=== PATIENT | female | born 1960 ===

== ENCOUNTER 2021-11-10 08:50 | Inpatient (IN) ==
[~2021-11-10 08:50] MED LIST: Buffered Lidocaine 1% SYRIN 1 ml INTRADERM ONE; DiMENhydriNATE IV 50 mg/ml 1 ml VIAL IV PUSH ONE; Famotidine IV 10 MG/ML 2 ml VIAL (20 mg) IV ONE; Lactated Ringers 1000 ml BAG 1,000 ML IV SCH
[2021-11-10 09:52] LABS: Hematocrit 50 % (35-47); Hemoglobin 16.5 g/dL (12.0-16.0); Mean Corpuscular HGB Conc 33 g/dL (31-36); Mean Corpuscular Hemoglobin 32 pg (27-31); Mean Corpuscular Volume 96 fL (80-97); Mean Platelet Volume 8.3 fL (7.4-10.4); Platelet Count 219 10^3/uL (150-450); Red Cell Distribution Width 14 % (10-15); White Blood Count 12.7 10^3/uL (3.5-10.8)
[2021-11-10 09:59] LABS: INR 1.04 (0.86-1.15)
[2021-11-10 10:29] LABS: Calcium 9.4 mg/dL (8.6-10.3); Potassium 4.1 mmol/L (3.5-5.0); eGFR CKD-EPI 46.2 (>60)
[2021-11-10] MEDS ORDERED: Propofol 10 MG/ML 20 ML BTL ONE (10:29)
[2021-11-10] MEDS ORDERED: Lidocaine 2% PF 5 ML VIAL ONE (10:29)
[2021-11-10] MEDS ORDERED: fentaNYL 100 mcg/2 ml 50 MCG/ML VIAL ONE ×2 (10:30→17:04)
[2021-11-10] MEDS ORDERED: Rocuronium 50 mg VIAL 10 mg/ml 5 ml VIAL (50 mg) ONE ×2 (10:30→14:24)
[2021-11-10] MEDS ORDERED: Midazolam 2 mg/2 ml VIAL 1 mg/ml 2 ml VIAL (2 mg) ONE (10:30)
[2021-11-10] MEDS ORDERED: Buffered Lidocaine 1% SYRIN 1 ml INTRADERM ONE (11:41)
[2021-11-10] MEDS ORDERED: Perflutren Lipid Microsphere 3 ML VIAL ONE (11:50)
[2021-11-10 12:40] LABS: ABS Basophils 0.1 10^3/ul (0-0.2); ABS Eosinophils 0.1 10^3/ul (0-0.6); ABS Monocytes 1.3 10^3/ul (0-0.8); ABS Neutrophils 8.2 10^3/ul (1.5-7.7); Eosinophil % 1.1 %; Lymphocyte % 23.3 %; Nucleated Red Blood Cells % 0.2
[2021-11-10] MEDS ORDERED: ceFAZolin 2 GM in NS PREMIX 2 GM/100 ML BAG IVPB ONE (12:49)
[2021-11-10] MEDS ORDERED: Bupivacaine 0.25% EPI 200,000 30 ML SDV ONE (12:57)
[2021-11-10] MEDS ORDERED: ceFAZolin VIAL 1 GM in NS 0.9% 50 ML 50 ML IVPB ONE (13:00)
[2021-11-10] MEDS ORDERED: Albuterol/Ipratropium NEB.SOL (2.5/0.5 MG) 3 ML NEB.SOLN ONE (13:39)
[2021-11-10] MEDS ORDERED: Albuterol/Ipratropium NEB.SOL (2.5/0.5 MG) 3 ML NEB.SOLN INH ONE (13:41)
[2021-11-10] MEDS ORDERED: ROPIVACAINE 5 MG/ML 30 ML BTL (0.5%) ONE (13:50)
[2021-11-10] MEDS ORDERED: Lidocaine 1% MPF 5 ML VIAL ONE (13:50)
[2021-11-10] MEDS ORDERED: Dexamethasone IV 4 MG/ML VIAL 1 ml VIAL ONE (15:08)
[2021-11-10] MEDS ORDERED: Vancomycin 1,000 MG VIAL ONE (15:21)
[2021-11-10] MEDS ORDERED: Esmolol 10 MG/ML 10 ML (100 mg) ONE (15:52)
[2021-11-10] MEDS ORDERED: Labetalol IV 5 MG/ML 20 ml VIAL ONE (16:24)
[2021-11-10] MEDS ORDERED: Levalbuterol HFA INHALER MDI ONE (16:34)
[2021-11-10] MEDS ORDERED: Ondansetron 4 mg VIAL 2 MG/ML 2 ml VIAL ONE (16:45)
[2021-11-10] MEDS ORDERED: Sevoflurane BOTTLE ONE (16:49)
[2021-11-10] MEDS ORDERED: Desflurane 240 ML INH ONE (16:49)
[2021-11-10] MEDS ORDERED: Phenylephrine 40 mcg/mL 10mL (400mcg) SYRINGE ONE (17:15)
[2021-11-10] MEDS ORDERED: Morphine 2 MG/ML SYRINGE IV PRN (17:47)
[2021-11-10] MEDS ORDERED: Lactulose 30 ml UDC PO PRN (17:47)
[2021-11-10] MEDS ORDERED: Magnesium Hydroxide LIQ 30 ML UDC PO PRN (17:47)
[2021-11-10] MEDS ORDERED: diPHENhydraMINE IV 50 MG/ML 1 ml VIAL (BENADRYL) IV PRN (17:47)
[2021-11-10] MEDS ORDERED: Ondansetron 4 mg VIAL 2 MG/ML 2 ml VIAL IV PRN (17:47)
[2021-11-10] MEDS ORDERED: Ondansetron ODT 4 mg TAB 4 MG TAB PO PRN (17:47)
[2021-11-10] MEDS ORDERED: Albuterol HFA INHALER 8 gm MDI INH PRN (17:58)
[2021-11-10] MEDS ORDERED: EPINEPHRINE INH PRN (17:58)
[2021-11-10] MEDS ORDERED: Lactated Ringers 1000 ml BAG 1,000 ML IV SCH (18:00)
[2021-11-10] MEDS: Magnesium Hydroxide LIQ 30 ML UDC PO SCH (22:46)
[2021-11-11] MEDS: ceFAZolin VIAL 1 GM in NS 0.9% 50 ML 50 ML IVPB SCH ×3 (02:00→17:50)
[2021-11-11 06:04] LABS: Hematocrit 41 % (35-47); Hemoglobin 13.7 g/dL (12.0-16.0); Mean Platelet Volume 8.6 fL (7.4-10.4); Platelet Count 193 10^3/uL (150-450)
[2021-11-11 06:33] LABS: Calcium 8.6 mg/dL (8.6-10.3)
[2021-11-11 06:58] LABS: Potassium 5.1 mmol/L (3.5-5.0)
[2021-11-11] MEDS: SPIRIVA Respimat (tiotropium) 2.5 mcg/inh Inhaler INH SCH (08:35)
[2021-11-11] MEDS: Magnesium Hydroxide LIQ 30 ML UDC PO SCH ×2 (09:15→20:16)
[2021-11-11] MEDS: Vitamin THERAPEUTIC TAB PO SCH (09:16)
[2021-11-11] MEDS ORDERED: Nicotine GUM 4MG FRUIT FLAVOR PO PRN (10:12)
[2021-11-11] MEDS: Enoxaparin 40 MG/0.4 ML SYR SUBCUT SCH (12:01)
[2021-11-12 04:52] LABS: Hematocrit 38 % (35-47); Hemoglobin 12.7 g/dL (12.0-16.0); Mean Platelet Volume 8.4 fL (7.4-10.4); Platelet Count 165 10^3/uL (150-450)
[2021-11-12 05:23] LABS: Calcium 8.2 mg/dL (8.6-10.3); Potassium 4.7 mmol/L (3.5-5.0); eGFR CKD-EPI 60.4 (>60)
[2021-11-12] MEDS: Magnesium Hydroxide LIQ 30 ML UDC PO SCH ×2 (08:09→22:22)
[2021-11-12] MEDS: Vitamin THERAPEUTIC TAB PO SCH (08:09)
[2021-11-12] MEDS: SPIRIVA Respimat (tiotropium) 2.5 mcg/inh Inhaler INH SCH (08:40)
[2021-11-12] MEDS: Enoxaparin 40 MG/0.4 ML SYR SUBCUT SCH (12:27)
[2021-11-13 06:01] LABS: Hematocrit 39 % (35-47); Hemoglobin 13.2 g/dL (12.0-16.0); Mean Platelet Volume 8.2 fL (7.4-10.4); Platelet Count 175 10^3/uL (150-450)
[2021-11-13] MEDS: SPIRIVA Respimat (tiotropium) 2.5 mcg/inh Inhaler INH SCH (09:10)
[2021-11-13] MEDS: Magnesium Hydroxide LIQ 30 ML UDC PO SCH ×2 (09:39→21:03)
[2021-11-13] MEDS: Enoxaparin 40 MG/0.4 ML SYR SUBCUT SCH (09:39)
[2021-11-13] MEDS: Vitamin THERAPEUTIC TAB PO SCH (09:39)
[2021-11-14 06:15] LABS: Hematocrit 39 % (35-47); Hemoglobin 13.3 g/dL (12.0-16.0); Mean Platelet Volume 8.6 fL (7.4-10.4); Platelet Count 181 10^3/uL (150-450)
[2021-11-14] MEDS: SPIRIVA Respimat (tiotropium) 2.5 mcg/inh Inhaler INH SCH (10:03)
[2021-11-14] MEDS: Magnesium Hydroxide LIQ 30 ML UDC PO SCH ×2 (10:17→22:00)
[2021-11-14] MEDS: Vitamin THERAPEUTIC TAB PO SCH (10:17)
[2021-11-14] MEDS: Enoxaparin 40 MG/0.4 ML SYR SUBCUT SCH (10:18)
[2021-11-15 05:59] LABS: Hematocrit 39 % (35-47); Hemoglobin 13.2 g/dL (12.0-16.0); Mean Platelet Volume 8.8 fL (7.4-10.4); Platelet Count 181 10^3/uL (150-450)
[2021-11-15] MEDS: Magnesium Hydroxide LIQ 30 ML UDC PO SCH ×2 (08:27→22:17)
[2021-11-15] MEDS: Enoxaparin 40 MG/0.4 ML SYR SUBCUT SCH (08:31)
[2021-11-15] MEDS: Vitamin THERAPEUTIC TAB PO SCH (08:31)
[2021-11-15] MEDS: SPIRIVA Respimat (tiotropium) 2.5 mcg/inh Inhaler INH SCH (08:46)
[2021-11-16] MEDS: Magnesium Hydroxide LIQ 30 ML UDC PO SCH ×2 (07:27→20:27)
[2021-11-16] MEDS: Enoxaparin 40 MG/0.4 ML SYR SUBCUT SCH (08:09)
[2021-11-16] MEDS: Vitamin THERAPEUTIC TAB PO SCH (08:10)
[2021-11-16] MEDS: SPIRIVA Respimat (tiotropium) 2.5 mcg/inh Inhaler INH SCH (08:55)
[2021-11-17] MEDS: Magnesium Hydroxide LIQ 30 ML UDC PO SCH (07:32)
[2021-11-17] MEDS: Enoxaparin 40 MG/0.4 ML SYR SUBCUT SCH (08:09)
[2021-11-17] MEDS: Vitamin THERAPEUTIC TAB PO SCH (08:09)
[2021-11-17] MEDS: SPIRIVA Respimat (tiotropium) 2.5 mcg/inh Inhaler INH SCH (08:17)
[2021-11-17 11:50] VITALS: BP 128/85
== END 2021-11-17 14:45 | DRG 317 ==
LOC: OR 08:50 → SSU 17:47
PROVIDERS: ADMIT Orthopaedic Surgery; ATTEND Orthopaedic Surgery

== ENCOUNTER 2021-11-17 15:17 | Inpatient (IN) ==
[2021-11-17 16:05] VITALS: BP 107/74
[2021-11-17] MEDS ORDERED: Senna TAB 8.6 mg TAB PO PRN (17:21)
[2021-11-17] MEDS ORDERED: CMCS: Simvastatin 10 mg TAB (NF) PO SCH (21:00)
[2021-11-17] MEDS ORDERED: Iohexol 350 (CONTRAST) 500 ML MDV IV ONE (21:16)
[2021-11-17] MEDS ORDERED: EPINEPHrine SYR 0.1MG/ML 10 ml SYRINGE ONE ×4 (21:28→22:46)
[2021-11-17] MEDS ORDERED: Succinylcholine 200 mg VIAL 20 mg/ml 10 ml VIAL (200 mg) ONE (21:28)
[2021-11-17] MEDS ORDERED: Etomidate 40 mg/20 ml (2 MG/ML) 20 ml VIAL (40 mg) ONE (21:28)
[2021-11-17 21:35] LABS: PCO2 Arterial 49 mmHg (35-45); PO2 Arterial 285 mmHg (80-100)
[2021-11-17] MEDS ORDERED: Sodium Bicarbonate 8.4% SYR 50 ml SYRINGE ONE ×3 (21:58→22:46)
[2021-11-17] MEDS ORDERED: Norepinephrine 16 MCG/ML D5W IVPREMIX (4 MG/250 ML) in D5W IV ONE (21:58)
[2021-11-17] MEDS ORDERED: Calcium CHLORIDE 10% SYRINGE 1 GM/10 ML ONE (21:58)
[2021-11-17] MEDS ORDERED: Morphine 2 MG/ML SYRINGE IV ONE (22:00)
[2021-11-17] MEDS ORDERED: Norepinephrine 16MCG/ML IVPREMIX 4,000 MCG/250 ML D5W BAG IV SCH (22:00)
[2021-11-17] MEDS ORDERED: Phenylephrine DRIP 0.2 MG/ML in NS 0.9% 250 ML (IVPREMIX) IV SCH (22:00)
[2021-11-17] MEDS ORDERED: Vasopressin 100 UNITS in D5W 250 ML BAG IV SCH ×2 (22:15→22:45)
[2021-11-17 22:16] LABS: Hematocrit 48 % (35-47); Hemoglobin 15.1 g/dL (12.0-16.0); Mean Corpuscular HGB Conc 32 g/dL (31-36); Mean Corpuscular Hemoglobin 32 pg (27-31); Mean Corpuscular Volume 100 fL (80-97); Mean Platelet Volume 9.4 fL (7.4-10.4); Platelet Count 181 10^3/uL (150-450); Red Blood Count 4.76 10^6 /uL (3.70-4.87); Red Cell Distribution Width 15 % (10-15); White Blood Count 18.9 10^3/uL (3.5-10.8)
[2021-11-17 22:22] LABS: Albumin 3.5 g/dL (3.2-5.2); CO2 Carbon Dioxide 24 mmol/L (22-32); Calcium 9.6 mg/dL (8.6-10.3); Chloride 94 mmol/L (101-111); Sodium 133 mmol/L (135-145)
[2021-11-17 22:28] LABS: ALT 48 U/L (7-52); Albumin/Globulin Ratio 1.1 (1-3); Alkaline Phosphatase 123 U/L (35-149); Blood Urea Nitrogen 22 mg/dL (6-24); Globulin 3.1 g/dL (2-4); Glucose 281 mg/dL (70-100); Total Protein 6.6 g/dL (6.4-8.9)
[2021-11-17 22:29] LABS: Anion Gap 15 mmol/L (2-11)
[2021-11-17 22:32] LABS: High Sens Troponin Baseline 149 pg/mL (<15)
[2021-11-17 22:40] LABS: Activated Partial Thrombo Time 44.9 seconds (26.0-38.0); INR 1.08 (0.86-1.15)
[2021-11-17] MEDS ORDERED: Rocuronium 50 mg VIAL 10 mg/ml 5 ml VIAL (50 mg) ONE (22:46)
[2021-11-17] MEDS ORDERED: Amiodarone IV 150 mg/3 ml VIAL ONE (22:46)
[2021-11-17] MEDS ORDERED: Propofol 10 MG/ML 20 ML BTL ONE (22:46)
[2021-11-17] MEDS ORDERED: LORazepam 2 mg VIAL 1 ml ONE (22:46)
[2021-11-17] MEDS ORDERED: Sodium Bicarbonate 8.4% IV 150 MEQ in D5W 1000 ML BAG 850 ML IV SCH (23:00)
[2021-11-17 23:04] LABS: RBC Morphology Normal (Normal)
[2021-11-17 23:06] LABS: ABS Basophils 0.1 10^3/ul (0-0.2); ABS Eosinophils 0.2 10^3/ul (0-0.6); ABS Lymphocytes 9.5 10^3/ul (1.0-4.8); ABS Monocytes 2.4 10^3/ul (0-0.8); ABS Neutrophils 6.8 10^3/ul (1.5-7.7); ABS Nucleated RBC 0.1 10^3/ul; Eosinophil % 0.8 %; Lymphocyte % 50.3 %; Nucleated Red Blood Cells % 0.3
[2021-11-17] MEDS ORDERED: Rocuronium 50 mg VIAL 10 mg/ml 5 ml VIAL (50 mg) IV ONE (23:13)
[2021-11-17] MEDS ORDERED: LORazepam 2 mg VIAL 1 ml IV PUSH ONE (23:13)
[2021-11-17] MEDS ORDERED: Lorazepam PYXIS KEY PRN (23:13)
[2021-11-17 23:26] LABS: Hematocrit 37 % (35-47); Hemoglobin 11.9 g/dL (12.0-16.0); Mean Corpuscular HGB Conc 32 g/dL (31-36); Mean Corpuscular Hemoglobin 32 pg (27-31); Mean Corpuscular Volume 100 fL (80-97); Mean Platelet Volume 7.6 fL (7.4-10.4); Platelet Count 144 10^3/uL (150-450); Red Cell Distribution Width 14 % (10-15); Venous Bicarbonate HCO3 18.4 mmol/L (24-28); White Blood Count 26.7 10^3/uL (3.5-10.8)
[2021-11-17 23:41] LABS: Fibrinogen 195.8 mg/dL (110.8-404.3); INR 1.32 (0.86-1.15)
[2021-11-17 23:46] LABS: Hematocrit 36 % (35-47); Hemoglobin 11.8 g/dL (12.0-16.0)
[2021-11-17 23:49] LABS: High Sensitivity Troponin 1 Hr 2749 pg/mL (<15)
[2021-11-18 00:07] LABS: Magnesium 2.4 mg/dL (1.9-2.7)
[2021-11-18 00:46] LABS: CO2 Carbon Dioxide 24 mmol/L (22-32); Calcium 8.2 mg/dL (8.6-10.3); Chloride 99 mmol/L (101-111); Sodium 138 mmol/L (135-145)
[2021-11-18 00:51] LABS: Anion Gap 15 mmol/L (2-11)
[2021-11-18 00:52] LABS: Blood Urea Nitrogen 22 mg/dL (6-24); Glucose 420 mg/dL (70-100); eGFR CKD-EPI 40.2 (>60)
[2021-11-18] MEDS ORDERED: SPIRIVA Respimat (tiotropium) 2.5 mcg/inh Inhaler INH SCH (09:00)
[2021-11-18] MEDS ORDERED: Enoxaparin 40 MG/0.4 ML SYR SUBCUT SCH (09:00)
== END 2021-11-17 22:29 | disposition short-term general hospital (02) | DRG 862 ==
LOC: PMRU 15:35
PROVIDERS: ADMIT Physical Medicine & Rehabilitation; ATTEND Physical Medicine & Rehabilitation

== ENCOUNTER 2021-11-17 22:30 | Inpatient (IN) ==
[2021-11-17] MEDS ORDERED: Propofol 10 mg/ml 100 ML BTL 100 ML ONE (22:35)
[2021-11-17] MEDS ORDERED: Rocuronium 50 mg VIAL 10 mg/ml 5 ml VIAL (50 mg) ONE (22:41)
[2021-11-17] MEDS ORDERED: Lorazepam PYXIS KEY ONE (22:42)
[2021-11-17] MEDS ORDERED: LORazepam 2 mg VIAL 1 ml ONE (22:43)
[2021-11-17] MEDS ORDERED: Amiodarone IV 150 mg/3 ml VIAL ONE (23:00)
[2021-11-17] MEDS ORDERED: Amiodarone 150 mg IVPREMIX 0 MG/0 ML BAG IV ONE (23:02)
[2021-11-17] MEDS ORDERED: EPINEPHrine SYR 0.1MG/ML 10 ml SYRINGE ONE (23:02)
[2021-11-17] MEDS ORDERED: Sodium Bicarbonate 8.4% SYR 50 ml SYRINGE ONE (23:19)
[2021-11-18] MEDS ORDERED: Lidocaine 2% (CARDIAC or IV) 20 MG/ML 5 ML SYRINGE (100 MG) ONE (04:48)
== END 2021-11-17 23:20 | disposition expired | DRG 196 ==
LOC: ICU 22:30
PROVIDERS: ADMIT Hospitalist; ATTEND Hospitalist